=== PATIENT | female | born 1985 | race African-American/Black ===

== ENCOUNTER 2020-06-09 03:02 | Emergency (ER) | payer OTHER ==
[~2020-06-09] VITALS: Ht 167.6 cm; Wt 113.0 kg
[2020-06-09] MEDS ORDERED: HYDROCODONE/ACETAMINOPHEN 5/325MG TABLET PO ONE (04:00)
[2020-06-09] MEDS ORDERED: PROPOFOL 200MG/20ML VIAL IV ONE (05:45)
[2020-06-09] MEDS ORDERED: FENTANYL CITRATE/PF 50MCG/ML 2ML VIAL IV ONE (05:45)
[2020-06-09 10:30] VITALS: BP 120/78
== END 2020-06-09 10:31 | disposition home or self-care (01) ==
LOC: ER 03:02
DX: S82.891A Other fracture of right lower leg, initial encounter for closed fracture (principal); S93.04XA Dislocation of right ankle joint, initial encounter; W01.0XXA Fall on same level from slipping, tripping and stumbling without subsequent striking against object, initial encounter; Y93.89 Activity, other specified; Y92.89 Other specified places as the place of occurrence of the external cause; Y99.8 Other external cause status
CPT/HCPCS: 27762; 73590; 73600; 99152; 99285; J2704; J3010